=== PATIENT | female | born 1990 | race Caucasian/White ===

== ENCOUNTER 2023-10-05 10:11 | Emergency (ER) | payer BC, SELFPAY ==
--- NOTE | ~2023-10-05 | CT_ITS ---
EXAMINATION: CT abdomen pelvis w con DATE: 10/05/2023 12:01 INDICATION: Abdominal pain and rectal bleeding TECHNIQUE: Computed tomography (CT) of the abdomen and pelvis was performed with 100 mL Omnipaque-350 intravenous contrast. Automated exposure control and iterative reconstruction technique were employe d. The dose-length product was 366.40 mGy-cm. COMPARISON: 12/21/2016 FINDINGS: Lung bases are clear. Heart size is normal. No pericardial or pleural effusion. Liver, gallbladder, s pleen, pancreas, bilateral adrenal glands and kidneys are normal. Bowels including the appendix are n ormal. Small fat-containing umbilical hernia. Bladder and anteverted uterus are normal. 1.5 cm corpus luteum cyst at the left ovary with peripheral enhancing crenellated margin. There is also a 1.8 cm c yst at the right ovary with a thin peripheral enhancing margin also potentially second corpus luteum cyst. Small amount of likely physiologic free fluid in the cul-de-sac. No pathologically enlarged abd ominal or pelvic lymphadenopathy. Bones are unremarkable. IMPRESSION: 1. Small likely physiologic free fluid in the pelvis and likely bilateral ovarian corpus luteum cysts , partially collapsed on the left. No other acute intra-abdominal/pelvic process. Reviewed, dictated and finalized at location A. IMPRESSION: 1. Small likely physiologic free fluid in the pelvis and likely bilateral ovari an corpus luteum cysts, partially collapsed on the left. No other acute intra-a bdominal/pelvic process.
[2023-10-05 10:13] VITALS: BP 144/85; PULSE 89; RESP 16; TEMP 36.3; O2SAT 99
--- NOTE | 2023-10-05 10:14 | ED.ABDPAIN ---
HPI - Abdominal Pain General Chief Complaint: Abdominal Pain Stated Complaint: stomach issues Time Seen by Provider: 10/05/23 10:12 Source: patient Mode of arrival: ambulatory Limitations: no limitations Related Data Allergies Allergy/AdvReac Type Severity Reaction Status Date / Time amoxicillin Allergy Unknown Hives Verified 10/05/23 10:16 Review of Systems Review of Systems: All systems as dictated in HPI Exam Narrative: GENERAL: Well-appearing, well-nourished, and in no acute distress. HEAD: Normocephalic, atraumatic. EYES: PERRLA and EOMI. ENT: Nares clear, no rhinorrhea or epistaxis. Mucous membranes moist. Oropharynx without tonsillar hypertrophy exudate or other lesions. NECK: Supple. No adenopathy or masses. CHEST: No respiratory distress. Clear to auscultation. No wheezes rales or rhonchi HEART: Regular rate and rhythm. No murmur heard. Normal peripheral pulses. ABDOMEN: Mild lower abdominal tenderness. Soft, nondistended, normal active bowel sounds. MSK: Normal range of motion. No edema. SKIN: Warm, dry, no rash. NEURO: Alert and oriented x4. No focal deficits. PSYCH: Normal mood and affect. Course Vital Signs Vital signs: Vital Signs Temperature 97.4 F L 10/05/23 10:13 Pulse Rate 89 10/05/23 10:13 Respiratory Rate 16 10/05/23 10:13 Blood Pressure 144/85 H 10/05/23 10:13 Pulse Oximetry 99 10/05/23 10:13 Temperature 97.4 F L 10/05/23 10:13 Pulse Rate 89 10/05/23 10:13 Respiratory Rate 16 10/05/23 10:13 Blood Pressure 144/85 H 10/05/23 10:13 Pulse Oximetry 99 10/05/23 10:13 MDM - Abdominal Pain MDM Narrative Medical decision making narrative: This is a 33-year-old female who presents to the ED with chief complaint of abdominal pain and rectal bleeding. Abdominal pain is chronic with IV has but rectal bleeding is new today. Described as bright red blood, no melena. Vitals are normal. Exam shows a mild abdominal tenderness to the lower quadrants. Lab work is grossly unremarkable. CT abdomen pelvis with IV contrast: IMPRESSION: 1. Small likely physiologic free fluid in the pelvis and likely bilateral ovarian corpus luteum cysts, partially collapsed on the left. No other acute intra-abdominal/pelvic process.. Overall nothing acute today an abdominal workup. She is well-appearing on reexamination. Patient has a GI doctor to follow up with if the bleeding continues. Pt will be discharged in stable condition. Return precautions given and supportive measures discussed. Pt is understanding and agreeable with plan for discharge and follow-up with PCP. Differential Diagnosis Differential diagnosis: Likely abdominal pain, acute appendicitis, constipation, diverticulitis, gastroenteritis and pancreatitis Lab Data 10/05/23 10:57 10/05/23 10:57 Labs: Lab Results 10/05/23 10/05/23 10/05/23 Range/Units 10:57 11:02 11:29 WBC 9.0 (4.5-10.0) K/mm3 RBC 4.02 L (4.2-5.4) M/mm3 Hgb 13.2 (12.0-15.0) g/dL Hct 39.9 (37.0-47.0) % MCV 99.3 (80-100) fl MCH 32.8 (26-34) pg MCHC 33.1 (32-36) g/dl RDW 12.5 (11.5-14.5) % Plt Count 232 (150-375) k/mm3 MPV 10.9 H (7.4-10.4) fl Immature Gran % (Auto) 0.4 (0-0.5) % Neut % (Auto) 71.3 (45.5-73.1) % Lymph % (Auto) 19.0 (18.3-44.2) % Banner % (Auto) 6.7 (2.6-8.5) % Eos % (Auto) 1.9 (0-4.4) % Baso % (Auto) 0.7 (0.2-1.2) % Lymph # (Auto) 1.71 (0.9-3.2) K/mm3 Banner # (Auto) 0.6 (0.1-0.6) K/mm3 Eos # (Auto) 0.2 (0-0.3) K/mm3 Baso # (Auto) 0.1 (0.0-0.1) K/mm3 Abs Immat Gran (auto) 0.04 H (0.00-0.031) K/mm3 Absolute Neuts (auto) 6.4 (1.3-6.7) K/mm3 Absolute Nucleated RBC 0.000 (0.0-0.012) K/mm3 Nucleated RBC % 0.0 (0.0-0.2) % PT 13.3 (11.1-14.7) Seconds INR 1.0 APTT 24.3 (22.3-36.8) Seconds Sodium 137 (137-145) mmol/L Potassium 4.3 (3.4-5.
[2023-10-05] MEDS: METOCLOPRAMIDE HCL INJ 10 MG/2 ML VIAL IV PUSH (11:09)
[2023-10-05 11:13] LABS: Basophils Absolute Auto 0.1 K/mm3 (0.0-0.1); Basophils Percent Auto 0.7 % (0.2-1.2); Eosinophils Absolute Auto 0.2 K/mm3 (0-0.3); Eosinophils Percent Auto 1.9 % (0-4.4); Hematocrit 39.9 % (37.0-47.0); Hemoglobin 13.2 g/dL (12.0-15.0); Immature Granulocyte Absolute 0.04 K/mm3 (0.00-0.031); Immature Granulocyte Percent A 0.4 % (0-0.5); Lymphocytes Absolute Auto 1.71 K/mm3 (0.9-3.2); Mean Corpuscular HGB Conc 33.1 g/dl (32-36); Mean Corpuscular Hemoglobin 32.8 pg (26-34); Mean Corpuscular Volume 99.3 fl (80-100); Mean Platelet Volume 10.9 fl (7.4-10.4); Monocytes Absolute Auto 0.6 K/mm3 (0.1-0.6); Monocytes Percent Auto 6.7 % (2.6-8.5); Neutrophils Absolute Auto 6.4 K/mm3 (1.3-6.7); Neutrophils Percent Auto 71.3 % (45.5-73.1); Platelet Count Result 232 k/mm3 (150-375); Red Blood Count 4.02 M/mm3 (4.2-5.4); Red Cell Distribution Width 12.5 % (11.5-14.5)
[2023-10-05 11:19] LABS: Appearance Urine Cloudy (Clear); Bacteria Urine 4+ /hpf; Bilirubin Urine Negative (Negative); Blood Urine 1+ (Negative); Color Urine Yellow (Yellow); Glucose Urine UA Negative (Negative); Ketones Urine Trace mg/dL (Negative); Leukocyte Esterase Ur Trace LEU/UL (Negative); Nitrate Urine Negative (Negative); Non Pathogenic Casts 0-2; Protein Urine Negative (Negative); Specific Grav Ur 1.024 (1.001-1.035); Squamous Epithelial Cell Urine Many /hpf (Few); Urobilinogen Urine 0.2 mg/dL (<2.0); WBC Urine 21-50 /hpf (0-3); pH Urine 5.5 (5.0-9.0)
[2023-10-05 11:20] LABS: Add Urine Microscopic? YES
[2023-10-05 11:24] LABS: Prothrombin Time 13.3 Seconds (11.1-14.7)
[2023-10-05 11:25] LABS: Partial Thromboplastin Time 24.3 Seconds (22.3-36.8)
[2023-10-05 11:26] LABS: Alanine Aminotransferase 17 U/L (6-35); Albumin Level 4.5 g/dL (3.5-5.1); Alkaline Phosphatase 75 U/L (38-126); Anion Gap 7 mmol/L (4-12); Aspartate Amino Transferase 24 U/L (14-36); Bilirubin,Total 0.8 mg/dL (0.2-1.3); Blood Urea Nitrogen 10 mg/dL (7-17); Calcium 9.2 mg/dL (8.4-10.2); Carbon Dioxide 23 mmol/L (22-30); Chloride 107 mmol/L (98-107); Estimated Glomerular Filt Rate > 60; Glucose 103 mg/dL (65-110); Lipase 60 U/L (23-300); Potassium 4.3 mmol/L (3.4-5.0); Sodium 137 mmol/L (137-145)
[2023-10-05 11:38] LABS: Pregnancy On Board Control Positive; Urine Pregnancy Test Negative
== END 2023-10-05 12:57 | disposition home or self-care (01) ==
PROVIDERS: Emergency Provider Physician Assistant
DX: K62.5 Hemorrhage of anus and rectum (principal); R93.89 Abnormal findings on diagnostic imaging of other specified body structures
CPT/HCPCS: 36415; 74177; 80048; 80076; 81001; 81025; 83605; 83690; 85025; 85610; 85730; 87086; 96374; 99284; J2765; Q9967

== ENCOUNTER 2024-03-27 10:44 | Emergency (ER) | payer BC, SELFPAY ==
--- NOTE | ~2024-03-27 | XR_ITS ---
EXAMINATION: XR chest 1V portable DATE: 03/27/2024 11:54 INDICATION: Body ache and fatigue. TECHNIQUE: A single frontal view of the chest was obtained. COMPARISON: CT abdomen and pelvis 10/05/2023 FINDINGS: There is no pneumonia, pleural effusion, or pneumothorax. The heart size is normal. IMPRESSION: 1. No acute cardiopulmonary disease. Reviewed, dictated and finalized at location A. IFIED ORTHOTIST/PEDORTHIST
[2024-03-27 11:24] VITALS: BP 123/73; PULSE 100; RESP 18; TEMP 36.4; O2SAT 99
--- NOTE | 2024-03-27 11:24 | ED.GENADULT ---
HPI - General Adult General Chief complaint: Upper Respiratory Infection Stated complaint: cough, fever, vomiting Time Seen by Provider: 03/27/24 11:18 History of Present Illness HPI narrative: 34-year-old female presenting to the emergency department for evaluation for viral symptoms. Patient reports that her 10-year-old son began developing symptoms yesterday. Patient began developing symptoms last night. Patient is complaining of body aches fatigue with associated nausea and vomiting. Patient did have emesis in the waiting room. At time of evaluation patient does not appear to be in any significant distress. Related Data Allergies Allergy/AdvReac Type Severity Reaction Status Date / Time amoxicillin Allergy Unknown Hives Verified 03/27/24 11:26 Review of Systems Review of Systems: All systems reviewed & are unremarkable except as noted in HPI and below Exam Narrative: APPEARANCE: Well appearing, no pain, no distress, well-nourished. HEAD: normocephalic, atraumatic. EYES: PERRLA/EOMI, conjunctivae clear. NOSE: Normal no drainage EARS:TMS clear with good light reflex. THROAT: Pharynx clear, no exudate. NECK: Supple. No adenopathy, no masses. RESPIRATORY: Airway patent, respirations nonlabored. Clear to auscultation bilaterally, no rales, rhonchi, wheezing. CARDIOVASCULAR: Regular rate and rhythm without murmurs rubs or gallops. ABDOMINAL: Soft, nontender, nondistended, normal bowel sounds MUSCULOSKELETAL: Moves all extremities. Strength/ROM intact, No edema, No calf tenderness. NEURO: Alert. Cranial nerves II through XII intact. Grossly intact SKIN: Warm, dry. Normal Color Course Vital Signs Vital signs: Vital Signs Temperature 97.5 F L 03/27/24 11:24 Pulse Rate 100 03/27/24 11:24 Respiratory Rate 18 03/27/24 11:24 Blood Pressure 123/73 03/27/24 11:24 Pulse Oximetry 99 03/27/24 11:24 Oxygen Delivery Room Air 03/27/24 11:24 Temperature 98.0 F 03/27/24 12:37 Pulse Rate 78 03/27/24 12:37 Respiratory Rate 18 03/27/24 12:37 Blood Pressure 124/78 03/27/24 12:37 Pulse Oximetry 99 03/27/24 12:37 Oxygen Delivery Room Air 12/03/24 11:24 Medical Decision Making MDM Narrative Medical decision making narrative: 34-year-old female present to the emergency department for evaluation for upper respiratory symptoms. Chest x-ray showed no acute cardiopulmonary abnormality patient was negative for influenza RSV and COVID. Suspect a viral etiology Differential Diagnosis Differential Diagnosis: COVID, RSV, influenza, pneumonia Vital Signs Vital Signs: Vital Signs Temperature 97.5 F L 03/27/24 11:24 Pulse Rate 100 03/27/24 11:24 Respiratory Rate 18 03/27/24 11:24 Blood Pressure 123/73 03/27/24 11:24 Pulse Oximetry 99 03/27/24 11:24 Oxygen Delivery Room Air 03/27/24 11:24 Temperature 98.0 F 03/27/24 12:37 Pulse Rate 78 03/27/24 12:37 Respiratory Rate 18 03/27/24 12:37 Blood Pressure 124/78 03/27/24 12:37 Pulse Oximetry 99 03/27/24 12:37 Oxygen Delivery Room Air 03/27/24 11:24 Lab Data Labs: Lab Results 03/27/24 Range/Units 11:24 Influenza A (RT-PCR) Negative (Negative) Influenza B (RT-PCR) Negative (Negative) RSV (RT-PCR) Negative (Negative) SARS-CoV-2 RNA (RT-PCR) Negative (Negative) Discharge Plan Discharge Clinical Impression: Upper respiratory infection, N&V (nausea and vomiting) Patient Disposition: Home, Self-Care Condition: Stable Instructions: Antibiotic Form, Viral Syndrome (ED) Additional Instructions: Tylenol and ibuprofen for fever and for body aches. Zofran as needed for nausea control. Have close follow-up with your primary care physician. Follow-up/Referrals: PHYSICIAN NOT ON STAFF,NONSTAFF [Non-Staff] -
[2024-03-27] MEDS: ONDANSETRON HCL ODT 4 MG TABLET PO (11:31)
[2024-03-27 12:06] LABS: Influenza A QL RT-PCR Negative (Negative); Influenza B QL RT-PCR Negative (Negative); RSV RNA, RT-PCR Negative (Negative); SARS-CoV-2 RNA PCR Negative (Negative)
[2024-03-27 12:37] VITALS: BP 124/78; PULSE 78; RESP 18; TEMP 36.7; O2SAT 99
== END 2024-03-27 12:40 | disposition home or self-care (01) ==
PROVIDERS: Emergency Provider Emergency Medicine
DX: J06.9 Acute upper respiratory infection, unspecified (principal); R11.2 Nausea with vomiting, unspecified; Z20.822 Contact with and (suspected) exposure to COVID-19
CPT/HCPCS: 71045; 87637; 99283; A9270